=== PATIENT | female | born 1950 | race Two or more races ===

== ENCOUNTER 2021-04-02 18:08 | Emergency (ER) | payer MEDICARE, OTHER ==
[~2021-04-02] VITALS: Ht 152.4 cm; Wt 63.2 kg
[2021-04-02 18:57] LABS: BASOPHILS % (AUTO) 1 % (0-1); EOSINOPHILS % (AUTO) 1 % (1-7); LYMPHOCYTES % (AUTO) 26 % (22-44); MEAN CORPUSCULAR HEMOGLOBIN 29.2 pg (27.0-34.8); MEAN CORPUSCULAR HGB CONC 33.7 g/dL (32.4-35.8); MEAN PLATELET VOLUME 8.4 fL (7.4-10.4); MONOCYTES % (AUTO) 7 % (2-9); NEUTROPHILS % (AUTO) 65 % (42-75); PLATELET COUNT 239 x10^3/uL (130-400); RED BLOOD COUNT 4.83 x10^6/uL (3.82-5.3); RED CELL DISTRIBUTION WIDTH 15.2 % (9.6-15.2)
[2021-04-02 19:11] LABS: ALANINE AMINOTRANSFERASE 28 U/L (12-78); ALBUMIN 4.2 g/dL (3.4-5.0); ANION GAP 9 mmol/L (5-15); CALCIUM 10.4 mg/dL (8.5-10.1); CHLORIDE 109 mmol/L (98-107); CREATININE 0.94 mg/dL (0.55-1.02)
[2021-04-02 19:15] LABS: ALKALINE PHOSPHATASE 97 U/L (45-117); TOTAL PROTEIN 8.4 g/dL (6.4-8.2); TROPONIN I < 0.015 ng/mL (0.000-0.045)
--- NOTE | 2021-04-02 20:53 | NUR ---
pt presents to the ed with dizziness for 3 days. pt states she is not currently feeling dizzy now. pt in gown on gurney and placed on continuous monitoring.
--- NOTE | 2021-04-02 21:38 | NUR ---
PT UP TO BATHROOM FOR UA SAMPLE, UA COLLECTED AND SENT TO LAB, PT RESTING ON GURENY COMFORTABLY, DENIES NEEDS AT THIS TIME.
[2021-04-02 22:03] LABS: MICROSCOPIC NOT IND
--- NOTE | 2021-04-02 22:20 | NUR ---
PT RESTIG ON GURWILIAM, DENIES NEEDS AT THIS TIME.
[2021-04-02 22:48] VITALS: BP 122/72
--- NOTE | 2021-04-02 22:49 | NUR ---
Patient given discharge instructions and they have confirmed that they understand the instructions. Patient ambulatory with steady gait.
== END 2021-04-02 22:51 | disposition home or self-care (01) ==
LOC: ED 21:06
DX: R42 Dizziness and giddiness (principal); R06.02 Shortness of breath; R00.0 Tachycardia, unspecified; Z98.61 Coronary angioplasty status
CPT/HCPCS: 36415; 71045; 80053; 81003; 84484; 85025; 93005; 99283; 99285